=== PATIENT | female | born 1950 | race Caucasian/White ===

== ENCOUNTER → 2021-06-07 | Outpatient (CLI) | payer MEDICARE, OTHER ==
[~2021-06-07] MED LIST: ATENOLOL25 MG PO; FOLIC ACID1 MG PO; LOW DOSE ASPIRI81 MG PO; METFORMIN HCL1000 MG PO; METHOTREXATE T2.5 MG PO; MOBIC15 MG PO; PRAVASTATIN SOD80 MG PO; REFRESH EYE DROPS EYEBOTH; RESTASIS 0.05%1 EACH EYEBOTH; ULTRAM50 MG PO; VICTOZA 3-0.6 MG/0.1 SQ; [UNRECOGNIZED DRUG - OTHER] EYEBOTH
[2021-06-07 12:25] LABS: HEMOGLOBIN 14.1 gm/dl (12.3-15.3); RED BLOOD COUNT 4.61 M/UL (4.00-5.10); WHITE BLOOD COUNT 8.2 K/UL (4.5-11.0)
[2021-06-07 12:57] LABS: BUN/CREATININE RATIO 22 (0-10)
== END ==
LOC: OPSV2 11:26 → EDSTATUS 11:30
PROVIDERS: Orthopaedic Surgery
DX: Z01.818 Encounter for other preprocedural examination (principal); M16.11 Unilateral primary osteoarthritis, right hip
CPT/HCPCS: 71046; 80048; 83036; 85025; 93005

== ENCOUNTER → 2021-06-16 | Outpatient (CLI) | payer MEDICARE, OTHER ==
[~2021-06-16] MED LIST changes: +PERCOCET 7.5-31 EACH PO
== END ==
LOC: NM 08:43
DX: Z01.810 Encounter for preprocedural cardiovascular examination (principal); I25.2 Old myocardial infarction; E11.9 Type 2 diabetes mellitus without complications; I07.1 Rheumatic tricuspid insufficiency; I27.20 Pulmonary hypertension, unspecified
CPT/HCPCS: ECHO; 78452; 93017; 93306; A9502; J2785

== ENCOUNTER 2021-06-22 05:32 | Day surgery (SDC) | payer MEDICARE, OTHER ==
[~2021-06-22] VITALS: Ht 160 cm; Wt 68.9 kg
[~2021-06-22 05:32] MED LIST changes: -PERCOCET 7.5-31 EACH PO
[2021-06-22 07:26] LABS: BUN/CREATININE RATIO 26 (0-10)
[2021-06-22] MEDS ORDERED: PERCOCET 7.5-31 EACH PO (12:04)
--- NOTE | 2021-06-22 17:27 | NUR ---
1830: PATIENT NOW UP IN CHAIR SCUDS OFF AT THIS TIME, BILATERAL KNEE-HIGH TEDS ON PATIENT. INCENTIVE SPIROMETER GIVEN AND INSTRUCTED ON USE, PATIENT PULLS 1000 ML WITH RETURN DEMONSTRATION, [place]. INSTRUCTED TO USE 10 TIMES Q HOUR WHILE AWAKE, VERBAL UNDERSTANDING OF INSTRUCTION NOTED. PATIENT ALSO INSTRUCTED THAT POLAR ICE WOULD BE REMOVED AT 1830 FOR 6 HOURS, PATIENT STATES THAT SHE PREFERS TO CONTINUE USE AT THIS TIME AND WILL INFORM STAFF IF SHE WANTS IT REMOVED. RN WILL PASS THIS INFORMATION TO ONCOMING SHIFT. NEUROVASCULAR CHECKS ARE WNL.
[2021-06-23 07:42] LABS: HEMOGLOBIN 11.2 gm/dl (12.3-15.3); RED BLOOD COUNT 3.78 M/UL (4.00-5.10); WHITE BLOOD COUNT 19.1 K/UL (4.5-11.0)
[2021-06-23 08:15] LABS: BUN/CREATININE RATIO 17 (0-10)
[2021-06-23] MEDS ORDERED: LOW DOSE ASPIRI81 MG PO (10:17)
== END 2021-06-23 12:51 | disposition home or self-care (01) ==
LOC: OR 05:32 → EDSTATUS 11:15 → M/S 14:20 → OR 06-23 12:51
PROVIDERS: Orthopaedic Surgery
DX: M16.11 Unilateral primary osteoarthritis, right hip (principal); G89.29 Other chronic pain; I10 Essential (primary) hypertension; E78.5 Hyperlipidemia, unspecified; E11.9 Type 2 diabetes mellitus without complications; Z79.82 Long term (current) use of aspirin; Z79.84 Long term (current) use of oral hypoglycemic drugs; Z79.899 Other long term (current) drug therapy
CPT/HCPCS: 36415; 72170; 73501; 76000; 80048; 82962; 85025; 86850; 86900; 86901; 97116-GP-CQ; 97161; 97166; 97535; C1776; J0171; J0690; J1100; J2001; J2250; J2270; J2405; J2704; J2795; J3370; J7030; J7050; J7120